=== PATIENT | female | born 1995 | race Two or more races ===

== ENCOUNTER 2022-05-07 20:31 | Emergency (ER) | payer MEDICAID ==
[~2022-05-07] VITALS: Ht 172.7 cm; Wt 113.6 kg
[2022-05-07 20:40] VITALS: BP 131/94
[2022-05-07] MEDS ORDERED: TETRACAINE HCL 0.5% OPTH(EYE) SOLN 4ML LEFTEYE ONE (22:45)
[2022-05-07] MEDS ORDERED: FLUORESCEIN SOD OPTH TEST STRIP LEFTEYE ONE (22:45)
== END 2022-05-07 22:57 | disposition left against medical advice (07) ==
LOC: ER 20:31
DX: H53.8 Other visual disturbances (principal)